=== PATIENT | male | born 1955 | race African-American/Black ===

== ENCOUNTER → 2018-06-12 | Outpatient (CLI) | payer OTHER ==
[~2018-06-12] MED LIST: BUME2TAB3 PO; CYCL5TAB PO; ENAL-3 PO; FLUMAZENIL 0.1 MG/ML INJ 10ML MDV IV ONE; GELATIN 1 SPONGE SIZE 100 TOP ONE; LIDOCAINE 2% (LOCAL ANESTH.) PF 5ml SDV ONE; MIDAZOLAM HCL 1MG/1ML-2 ML VIAL ONE; NALOXONE HCL 1MG/ML 2ML SYRINGE ONE; fentaNYL CITRATE 100 MCG/2 ML VL ONE
[2018-06-12 10:06] LABS: Basophils # (auto) 0.1 uL; Basophils % (auto) 1.5 % (0.0-2.0); Eosinophils # (auto) 0.4 uL; Hematocrit 33.2 % (41.0-53.0); Hemoglobin 11.1 g/dL (13.5-17.5); Lymphocytes # (auto) 1.5 uL; Lymphocytes % (auto) 15.4 % (10.0-50.0); Mean Corpuscular Hemoglobin 29.1 pg (28.0-32.0); Mean Corpuscular Hgb Conc. 33.3 g/dL (32.0-36.0); Mean Corpuscular Volume 87.2 fL (80.0-100.0); Monocytes # (auto) 0.8 uL; Monocytes % (auto) 8.3 % (0.0-12.0); Neutrophils # (auto) 6.7 uL; Neutrophils % (auto) 70.8 % (37.0-80.0); Platelet Count (auto) 435 10^3/uL (140-450); Red Blood Cells 3.81 10^6/uL (4.5-5.90); Red Cell Distribution Width 17.6 % (11.8-14.3); White Blood Cell 9.5 10^3/uL (4.4-10.8)
[2018-06-12 10:16] LABS: INR 0.93 (0.9-1.15); Partial Thromboplastin Time 29.3 sec (23.78-33.04)
== END | disposition home or self-care (01) ==
LOC: LAB 08:00 → CT 09:36
DX: N19 Unspecified kidney failure (principal); I50.9 Heart failure, unspecified; J18.9 Pneumonia, unspecified organism; F17.210 Nicotine dependence, cigarettes, uncomplicated; N04.9 Nephrotic syndrome with unspecified morphologic changes; Z82.49 Family history of ischemic heart disease and other diseases of the circulatory system; Z79.899 Other long term (current) drug therapy
CPT/HCPCS: 10022; 36415; 71045; 74150; 77012; 85025; 85610; 85730; J2001; J2250

== ENCOUNTER 2018-06-14 11:25 | Inpatient (IN) | payer OTHER ==
[~2018-06-14] VITALS: Ht 175.3 cm; Wt 112.6 kg
[2018-06-14] MEDS ORDERED: FUROSEMIDE 40 MG/4 ML VIAL IV ONE (12:00)
[2018-06-14 12:30] LABS: Basophils # (auto) 0.1 uL; Basophils % (auto) 0.8 % (0.0-2.0); Eosinophils # (auto) 0.5 uL; Hematocrit 30.7 % (41.0-53.0); Hemoglobin 10.1 g/dL (13.5-17.5); Lymphocytes # (auto) 1.5 uL; Mean Corpuscular Hemoglobin 28.9 pg (28.0-32.0); Mean Corpuscular Hgb Conc. 33.1 g/dL (32.0-36.0); Mean Corpuscular Volume 87.5 fL (80.0-100.0); Monocytes # (auto) 0.7 uL; Monocytes % (auto) 8.8 % (0.0-12.0); Neutrophils # (auto) 5.3 uL; Neutrophils % (auto) 65.4 % (37.0-80.0); Platelet Count (auto) 408 10^3/uL (140-450); Red Blood Cells 3.51 10^6/uL (4.5-5.90); Red Cell Distribution Width 17.7 % (11.8-14.3)
[2018-06-14 12:48] LABS: INR 0.95 (0.9-1.15); Partial Thromboplastin Time 29.2 sec (23.78-33.04); Prothrombin Time 10.2 sec (9.27-12.13)
[2018-06-14 12:53] LABS: BUN/Creatinine Ratio 7.7; Calcium 6.9 mg/dL (8.5-10.1); Potassium 3.2 mmol/L (3.5-5.1)
[2018-06-14 12:58] LABS: Bilirubin, Total 0.1 mg/dL (0.2-1.0); Total Protein 4.2 g/dL (6.4-8.2)
[2018-06-14 13:07] LABS: Albumin 0.8 g/dL (3.4-5.0)
[2018-06-14] MEDS ORDERED: POTASSIUM EFFERVESENT TAB 25 MEQ PO ONE (13:15)
[2018-06-14] MEDS ORDERED: ALBUTEROL SULF 2.5 MG/0.5ML(0.5%) NEB SOLN NEB PRN (13:30)
[2018-06-14] MEDS ORDERED: MORPHINE SULFATE 4 MG/ML SYR/VIAL IV PRN ×2 (13:30)
[2018-06-14] MEDS ORDERED: ACETAMINOPHEN 500 MG TAB PO PRN (13:30)
[2018-06-14] MEDS ORDERED: LACTULOSE 20Gm/30ML SOLN PO PRN (13:30)
[2018-06-14] MEDS ORDERED: NITROGLYCERIN 0.4 MG SL TAB SL PRN (13:30)
[2018-06-14] MEDS ORDERED: ONDANSETRON HCL 4 MG/2 ML VIAL IV PRN (13:30)
[2018-06-14] MEDS ORDERED: LORazepam 0.5 MG TAB PO PRN (13:30)
[2018-06-14] MEDS: PANTOPRAZOLE 40 MG TAB PO SCH (13:51)
[2018-06-14] MEDS: SODIUM CHLOR 0.9% PF (SALINE LOCK) 10ML VIAL/SYR IV SCH ×2 (13:51→21:48)
[2018-06-14] MEDS: LEVOFLOXACIN 500MG 100 ML IV SCH (13:54)
[2018-06-14 13:58] LABS: Urine Bacteria FEW /hpf (None Seen); Urine Blood 2+ /uL (Negative); Urine Specific Gravity 1.012 (1.001-1.035); Urine WBC 6 /hpf (0 - 3)
[2018-06-14] MEDS ORDERED: CARVEDILOL 3.125 MG TAB PO ONE (15:45)
[2018-06-14 17:32] VITALS: BP 148/108
[2018-06-14] MEDS: LABETALOL HCL 5 MG/ML ML 20ML VIAL IV PRN (17:43)
[2018-06-14] MEDS: ALBUTEROL SULF 2.5 MG/0.5ML(0.5%) NEB SOLN NEB SCH ×2 (18:22→23:41)
[2018-06-14 19:14] LABS: Hematocrit 31.5 % (41.0-53.0); Hemoglobin 10.6 g/dL (13.5-17.5)
[2018-06-14 20:20] VITALS: BP 136/101
[2018-06-14 20:54] VITALS: BP 136/101
[2018-06-14] MEDS: ATORVASTATIN 20 MG TAB PO SCH (21:48)
[2018-06-14] MEDS: CARVEDILOL 3.125 MG TAB PO SCH (21:49)
[2018-06-14 22:38] LABS: Amphetamine Screen, Urine NEGATIVE (NEGATIVE); Barbiturate Scree,Urine NEGATIVE (NEGATIVE); Benzodiazephine Screen, Urine NEGATIVE (NEGATIVE); Cannabinoid Screen, Urine NEGATIVE (NEGATIVE); Cocaine Screen, Urine NEGATIVE (NEGATIVE); Opiate Scree,Urine NEGATIVE (NEGATIVE); Phencyclidine Screen, Urine NEGATIVE (NEGATIVE)
[2018-06-14 22:46] LABS: Alcohol, Urine < 3.0 mg/dL (0-5)
[2018-06-15 00:59] LABS: Hematocrit 29.6 % (41.0-53.0); Hemoglobin 9.9 g/dL (13.5-17.5)
[2018-06-15] MEDS ORDERED: ENAL-3 PO (02:49)
[2018-06-15] MEDS ORDERED: BUME2TAB3 PO (02:50)
[2018-06-15] MEDS ORDERED: CYCL5TAB PO (02:50)
[2018-06-15 05:06] VITALS: BP 138/85
[2018-06-15] MEDS: ALBUTEROL SULF 2.5 MG/0.5ML(0.5%) NEB SOLN NEB SCH ×3 (05:46→19:03)
[2018-06-15] MEDS: HYDROcodone-ACET 5/325MG TAB PO PRN ×2 (05:50→17:48)
[2018-06-15] MEDS ORDERED: INFLUENZA QUAD 2018-2019 0.5 ML SYRG IM ONE (06:00)
[2018-06-15] MEDS ORDERED: PNEUMOCOCCAL VACC POLYS 25 MCG/0.5 ML VIAL IM ONE (06:00)
[2018-06-15 06:08] LABS: Basophils # (auto) 0.1 uL; Basophils % (auto) 1.1 % (0.0-2.0); Eosinophils # (auto) 0.5 uL; Eosinophils % (auto) 5.5 % (0.0-7.0); Hematocrit 29.5 % (41.0-53.0); Lymphocytes # (auto) 1.3 uL; Lymphocytes % (auto) 13.6 % (10.0-50.0); Mean Corpuscular Hemoglobin 29.7 pg (28.0-32.0); Mean Corpuscular Volume 87.1 fL (80.0-100.0); Monocytes # (auto) 0.9 uL; Monocytes % (auto) 9.6 % (0.0-12.0); Neutrophils # (auto) 6.6 uL; Neutrophils % (auto) 70.2 % (37.0-80.0); Nucleated Red Blood Cells % 0.1 %; Platelet Count (auto) 380 10^3/uL (140-450); Red Blood Cells 3.38 10^6/uL (4.5-5.90); Red Cell Distribution Width 17.4 % (11.8-14.3); White Blood Cell 9.4 10^3/uL (4.4-10.8)
[2018-06-15] MEDS: SODIUM CHLOR 0.9% PF (SALINE LOCK) 10ML VIAL/SYR IV SCH ×3 (06:22→21:26)
[2018-06-15 06:32] LABS: Potassium 3.1 mmol/L (3.5-5.1)
[2018-06-15 06:47] LABS: BUN/Creatinine Ratio 9.7; Calcium 7.3 mg/dL (8.5-10.1)
[2018-06-15 07:00] LABS: Bilirubin, Total 0.1 mg/dL (0.2-1.0); Total Protein 4.1 g/dL (6.4-8.2)
[2018-06-15 07:01] LABS: Albumin 0.7 g/dL (3.4-5.0)
[2018-06-15 09:00] VITALS: BP 155/94
[2018-06-15] MEDS ORDERED: FUROSEMIDE 40 MG/4 ML VIAL IV SCH (10:00)
[2018-06-15] MEDS: POTASSIUM CHL 20 Meq TABLET PO SCH (10:17)
[2018-06-15] MEDS: ENALAPRIL MALEATE 2.5 MG TAB PO SCH (10:17)
[2018-06-15] MEDS: PANTOPRAZOLE 40 MG TAB PO SCH (10:17)
[2018-06-15] MEDS: CARVEDILOL 3.125 MG TAB PO SCH ×2 (10:17→21:27)
[2018-06-15] MEDS: NITROGLYCERIN 0.2MG/HR TOPICAL PATCH TD SCH (10:18)
[2018-06-15] MEDS: LEVOFLOXACIN 500MG 100 ML IV SCH (10:18)
[2018-06-15] MEDS ORDERED: POTASSIUM CHL 20MEQ/100ML 100 ML IV ONE (11:15)
[2018-06-15] MEDS ORDERED: POTASSIUM CHL 20 Meq TABLET PO ONE (12:00)
[2018-06-15 13:00] VITALS: BP 138/88
[2018-06-15 15:01] LABS: Protein, Urine 331.4 mg/dL (0.0-11.9)
[2018-06-15 17:14] VITALS: BP 145/99
[2018-06-15] MEDS: Pro-Stat SF 30ml Vanilla PO SCH ×2 (18:00→19:01)
[2018-06-15] MEDS: ATORVASTATIN 20 MG TAB PO SCH (21:26)
[2018-06-15] MEDS: FUROSEMIDE 40 MG/4 ML VIAL IV SCH (21:26)
[2018-06-15 22:00] VITALS: BP 145/89
[2018-06-16] MEDS: ALBUTEROL SULF 2.5 MG/0.5ML(0.5%) NEB SOLN NEB SCH ×4 (00:31→19:06)
[2018-06-16] MEDS: HYDROcodone-ACET 5/325MG TAB PO PRN (04:55)
[2018-06-16 05:00] VITALS: BP 121/84
[2018-06-16] MEDS: SODIUM CHLOR 0.9% PF (SALINE LOCK) 10ML VIAL/SYR IV SCH ×3 (05:53→22:16)
[2018-06-16 08:06] LABS: Immunoglobulin G, Serum 281 mg/dL (700-1600)
[2018-06-16 09:00] VITALS: BP 151/100
[2018-06-16] MEDS: FUROSEMIDE 40 MG/4 ML VIAL IV SCH ×2 (10:23→22:16)
[2018-06-16] MEDS: LEVOFLOXACIN 500MG 100 ML IV SCH (10:23)
[2018-06-16] MEDS: POTASSIUM CHL 20 Meq TABLET PO SCH (10:24)
[2018-06-16] MEDS: PANTOPRAZOLE 40 MG TAB PO SCH (10:24)
[2018-06-16] MEDS: ENALAPRIL MALEATE 2.5 MG TAB PO SCH (10:24)
[2018-06-16] MEDS: CARVEDILOL 3.125 MG TAB PO SCH ×2 (10:25→22:17)
[2018-06-16] MEDS: NITROGLYCERIN 0.2MG/HR TOPICAL PATCH TD SCH (10:25)
[2018-06-16 13:00] VITALS: BP 157/101
[2018-06-16 14:10] LABS: BUN/Creatinine Ratio 11.4; Potassium 3.4 mmol/L (3.5-5.1)
[2018-06-16 17:00] VITALS: BP 143/93
[2018-06-16] MEDS ORDERED: SOD CHL 0.45% WITH 20MEQ KCL 1,000 ML IV SCH (17:30)
[2018-06-16] MEDS ORDERED: SOD CHL 0.45% WITH 20MEQ KCL 1,000 ML IV ONE (17:30)
[2018-06-16] MEDS ORDERED: POTASSIUM CHL 20MEQ/100ML 100 ML IV ONE (17:45)
[2018-06-16] MEDS: Pro-Stat SF 30ml Vanilla PO SCH (18:33)
[2018-06-16 22:00] VITALS: BP 151/92
[2018-06-16] MEDS: ATORVASTATIN 20 MG TAB PO SCH (22:17)
[2018-06-16] MEDS: TEMAZEPAM 15 MG CAP PO PRN (22:26)
[2018-06-17] MEDS: ALBUTEROL SULF 2.5 MG/0.5ML(0.5%) NEB SOLN NEB SCH ×4 (00:29→20:17)
[2018-06-17 05:00] VITALS: BP 133/98
[2018-06-17 05:30] LABS: Basophils # (auto) 0 uL; Basophils % (auto) 0.5 % (0.0-2.0); Eosinophils # (auto) 0.6 uL; Eosinophils % (auto) 7.4 % (0.0-7.0); Hematocrit 26.7 % (41.0-53.0); Lymphocytes % (auto) 12.5 % (10.0-50.0); Mean Corpuscular Hemoglobin 29.7 pg (28.0-32.0); Mean Corpuscular Hgb Conc. 33.7 g/dL (32.0-36.0); Monocytes # (auto) 0.8 uL; Neutrophils # (auto) 5.8 uL; Neutrophils % (auto) 69.6 % (37.0-80.0); Platelet Count (auto) 353 10^3/uL (140-450); Red Blood Cells 3.03 10^6/uL (4.5-5.90); Red Cell Distribution Width 17.2 % (11.8-14.3); White Blood Cell 8.4 10^3/uL (4.4-10.8)
[2018-06-17 05:45] LABS: BUN/Creatinine Ratio 12.1; Potassium 3.2 mmol/L (3.5-5.1)
[2018-06-17 05:51] LABS: Bilirubin, Total 0.2 mg/dL (0.2-1.0); Total Protein 3.9 g/dL (6.4-8.2)
[2018-06-17 05:53] LABS: Albumin 0.7 g/dL (3.4-5.0)
[2018-06-17] MEDS ORDERED: SODIUM CHLORIDE 0.9 % NEB SOLN 3ML NEB ONE (05:56)
[2018-06-17] MEDS: SODIUM CHLOR 0.9% PF (SALINE LOCK) 10ML VIAL/SYR IV SCH ×3 (06:00→22:00)
[2018-06-17] MEDS: Pro-Stat SF 30ml Vanilla PO SCH ×2 (08:00→18:00)
[2018-06-17] MEDS ORDERED: ALBUMIN 25% 100 ML IV ONE (08:30)
[2018-06-17 09:00] VITALS: BP 158/109
[2018-06-17] MEDS: POTASSIUM CHL 20 Meq TABLET PO SCH (09:09)
[2018-06-17] MEDS: PANTOPRAZOLE 40 MG TAB PO SCH (09:14)
[2018-06-17] MEDS: FUROSEMIDE 40 MG/4 ML VIAL IV SCH ×2 (09:14→17:31)
[2018-06-17] MEDS: CARVEDILOL 3.125 MG TAB PO SCH ×2 (09:15→21:52)
[2018-06-17] MEDS: ENALAPRIL MALEATE 2.5 MG TAB PO SCH (09:16)
[2018-06-17] MEDS: LEVOFLOXACIN 500MG 100 ML IV SCH (09:17)
[2018-06-17] MEDS: NITROGLYCERIN 0.2MG/HR TOPICAL PATCH TD SCH (09:17)
[2018-06-17 13:00] VITALS: BP 137/92
[2018-06-17] MEDS: POTASSIUM CHL 20MEQ/100ML 100 ML IV SCH ×2 (13:45→17:30)
[2018-06-17 17:00] VITALS: BP 137/87
[2018-06-17] MEDS: ATORVASTATIN 20 MG TAB PO SCH (21:52)
[2018-06-17] MEDS: TEMAZEPAM 15 MG CAP PO PRN (21:53)
[2018-06-17 22:00] VITALS: BP 153/99
[2018-06-18] VITALS (8 sets, daily range): BP systolic 128–154; BP diastolic 79–104
[2018-06-18] MEDS: ALBUTEROL SULF 2.5 MG/0.5ML(0.5%) NEB SOLN NEB SCH ×4 (00:30→19:32)
[2018-06-18] MEDS: SODIUM CHLOR 0.9% PF (SALINE LOCK) 10ML VIAL/SYR IV SCH ×3 (06:00→21:46)
[2018-06-18 06:31] LABS: Basophils # (auto) 0.1 uL; Basophils % (auto) 1.2 % (0.0-2.0); Eosinophils # (auto) 0.7 uL; Eosinophils % (auto) 7.8 % (0.0-7.0); Hematocrit 27.5 % (41.0-53.0); Hemoglobin 9.3 g/dL (13.5-17.5); Lymphocytes # (auto) 1.1 uL; Lymphocytes % (auto) 12.2 % (10.0-50.0); Mean Corpuscular Hemoglobin 29.9 pg (28.0-32.0); Monocytes # (auto) 0.9 uL; Monocytes % (auto) 10.1 % (0.0-12.0); Neutrophils # (auto) 6.4 uL; Neutrophils % (auto) 68.7 % (37.0-80.0); Platelet Count (auto) 370 10^3/uL (140-450); Red Blood Cells 3.12 10^6/uL (4.5-5.90); Red Cell Distribution Width 17.1 % (11.8-14.3); White Blood Cell 9.3 10^3/uL (4.4-10.8)
[2018-06-18 06:40] LABS: INR 0.94 (0.9-1.15); Prothrombin Time 10.1 sec (9.27-12.13)
[2018-06-18 06:48] LABS: BUN/Creatinine Ratio 12.8; Calcium 7.2 mg/dL (8.5-10.1); Potassium 3.5 mmol/L (3.5-5.1)
[2018-06-18] MEDS: FUROSEMIDE 40 MG/4 ML VIAL IV SCH ×2 (06:48→18:29)
[2018-06-18 07:10] LABS: Bilirubin, Total 0.1 mg/dL (0.2-1.0); Total Protein 4.3 g/dL (6.4-8.2)
[2018-06-18 07:22] LABS: Albumin 0.9 g/dL (3.4-5.0)
[2018-06-18] MEDS: Pro-Stat SF 30ml Vanilla PO SCH (08:00)
[2018-06-18] MEDS ORDERED: ALBUMIN 25% 100 ML IV ONE (08:00)
[2018-06-18] MEDS: LABETALOL HCL 5 MG/ML ML 20ML VIAL IV PRN ×2 (08:53→14:25)
[2018-06-18] MEDS: ENALAPRIL MALEATE 2.5 MG TAB PO SCH (09:49)
[2018-06-18] MEDS: POTASSIUM CHL 20 Meq TABLET PO SCH (09:49)
[2018-06-18] MEDS: PANTOPRAZOLE 40 MG TAB PO SCH (09:50)
[2018-06-18] MEDS: CARVEDILOL 3.125 MG TAB PO SCH ×2 (09:50→21:46)
[2018-06-18] MEDS: NITROGLYCERIN 0.2MG/HR TOPICAL PATCH TD SCH (10:03)
[2018-06-18] MEDS ORDERED: IOHEXOL 350 MG/ML 100ML IJ ONE (12:42)
[2018-06-18] MEDS ORDERED: LIDOCAINE 2% (LOCAL ANESTH.) PF 5ml SDV ONE (12:42)
[2018-06-18] MEDS ORDERED: ANGIOMAX 250 MG VIAL IV ONE (12:57)
[2018-06-18] MEDS ORDERED: fentaNYL CITRATE 100 MCG/2 ML VL ONE (12:57)
[2018-06-18] MEDS ORDERED: MIDAZOLAM HCL 1MG/1ML-2 ML VIAL ONE (12:57)
[2018-06-18] MEDS ORDERED: SODIUM CHL 0.9% 0 ML ONE (12:58)
[2018-06-18] MEDS ORDERED: IODIXANOL 320MG/ML 100ML BTL IV ONE (13:03)
[2018-06-18 13:08] LABS: Hepatitis B Surface Antigen Negative (Negative); Hepatitis C Antibody Negative (Negative)
[2018-06-18] MEDS ORDERED: LABETALOL HCL 5 MG/ML ML 20ML VIAL IV ONE (14:26)
[2018-06-18] MEDS: ATORVASTATIN 20 MG TAB PO SCH (21:47)
[2018-06-19] MEDS: ALBUTEROL SULF 2.5 MG/0.5ML(0.5%) NEB SOLN NEB SCH ×3 (01:02→12:04)
[2018-06-19 05:00] VITALS: BP 137/87
[2018-06-19] MEDS: SODIUM CHLOR 0.9% PF (SALINE LOCK) 10ML VIAL/SYR IV SCH (06:02)
[2018-06-19] MEDS: FUROSEMIDE 40 MG/4 ML VIAL IV SCH (06:03)
[2018-06-19 06:48] LABS: INR 0.95 (0.9-1.15); Partial Thromboplastin Time 31.3 sec (23.78-33.04); Prothrombin Time 10.2 sec (9.27-12.13)
[2018-06-19 07:02] LABS: Potassium 3.3 mmol/L (3.5-5.1)
[2018-06-19 07:15] LABS: BUN/Creatinine Ratio 13.4; Calcium 7.2 mg/dL (8.5-10.1)
[2018-06-19 07:33] VITALS: BP 145/107
[2018-06-19] MEDS: Pro-Stat SF 30ml Vanilla PO SCH (08:00)
[2018-06-19 09:00] VITALS: BP 145/107
[2018-06-19] MEDS ORDERED: POTASSIUM CHL 20 Meq TABLET PO ONE (10:00)
[2018-06-19] MEDS ORDERED: ALBUMIN 25% 100 ML IV ONE (10:45)
[2018-06-19] MEDS: ENALAPRIL MALEATE 2.5 MG TAB PO SCH (10:50)
[2018-06-19] MEDS: NITROGLYCERIN 0.2MG/HR TOPICAL PATCH TD SCH (10:50)
[2018-06-19] MEDS: POTASSIUM CHL 20 Meq TABLET PO SCH (10:50)
[2018-06-19] MEDS: CARVEDILOL 3.125 MG TAB PO SCH (10:51)
[2018-06-19] MEDS: PANTOPRAZOLE 40 MG TAB PO SCH (10:51)
[2018-06-19 11:13] VITALS: BP 143/99
[2018-06-19 12:32] VITALS: BP 145/107
== END 2018-06-19 12:58 | disposition home or self-care (01) | DRG 192 ==
LOC: ER 11:27 → TELE 11:28 → TELE-WESTW 20:00
PROVIDERS: ADMIT Internal Medicine; ATTEND Internal Medicine
PROC: 4A023N7 Measurement of Cardiac Sampling and Pressure, Left Heart, Percutaneous Approach (ICD-10-PCS; principal; 2018-06-18)
PROC: B2151ZZ Fluoroscopy of Left Heart using Low Osmolar Contrast (ICD-10-PCS; 2018-06-18)
PROC: B2111ZZ Fluoroscopy of Multiple Coronary Arteries using Low Osmolar Contrast (ICD-10-PCS; 2018-06-18)
DX: I13.0 Hypertensive heart and chronic kidney disease with heart failure and stage 1 through stage 4 chronic kidney disease, or unspecified chronic kidney disease (principal); E43 Unspecified severe protein-calorie malnutrition; I42.0 Dilated cardiomyopathy; N17.9 Acute kidney failure, unspecified; N18.3 Chronic kidney disease, stage 3 (moderate); E87.6 Hypokalemia; J98.11 Atelectasis; N04.9 Nephrotic syndrome with unspecified morphologic changes; G62.9 Polyneuropathy, unspecified; D63.1 Anemia in chronic kidney disease; E66.9 Obesity, unspecified; E78.5 Hyperlipidemia, unspecified; G89.29 Other chronic pain; M54.9 Dorsalgia, unspecified; M19.90 Unspecified osteoarthritis, unspecified site; Z68.36 Body mass index [BMI] 36.0-36.9, adult; Z23 Encounter for immunization; I50.43 Acute on chronic combined systolic (congestive) and diastolic (congestive) heart failure
CPT/HCPCS: 10022; 36415; 51702; 71045; 74150; 77012; 80048; 80053; 80061; 80307; 81001; 82306; 82550; 82570; 82784; 83520; 83880; 83970; 84100; 84156; 84300; 84443; 84484; 85014; 85018; 85025; 85045; 85610; 85652; 85730; 86038; 86141; 86256; 86334; 86335; 86592; 86803; 86850; 86900; 86901; 87340; 90674; 93005; 93306; 94640; 96365; 96375; 99152; A6257; J1956; J2001; J2250; J2405; J3480; P9047; Q9967

== ENCOUNTER 2018-07-14 00:54 | Emergency (ER) | payer OTHER ==
[~2018-07-14] VITALS: Ht 175.3 cm; Wt 137.0 kg
[~2018-07-14 00:54] MED LIST changes: -FLUMAZENIL 0.1 MG/ML INJ 10ML MDV IV ONE; -GELATIN 1 SPONGE SIZE 100 TOP ONE; -LIDOCAINE 2% (LOCAL ANESTH.) PF 5ml SDV ONE; -MIDAZOLAM HCL 1MG/1ML-2 ML VIAL ONE; -NALOXONE HCL 1MG/ML 2ML SYRINGE ONE; -fentaNYL CITRATE 100 MCG/2 ML VL ONE
[2018-07-14] MEDS ORDERED: FUROSEMIDE 20 MG/2 ML VIAL IV ONE (01:15)
[2018-07-14 01:29] LABS: Basophils # (auto) 0 uL; Basophils % (auto) 0.1 % (0.0-2.0); Eosinophils # (auto) 0 uL; Hematocrit 33.2 % (41.0-53.0); Hemoglobin 10.7 g/dL (13.5-17.5); Lymphocytes # (auto) 0.3 uL; Lymphocytes % (auto) 1.8 % (10.0-50.0); Mean Corpuscular Hemoglobin 29.5 pg (28.0-32.0); Mean Corpuscular Hgb Conc. 32.2 g/dL (32.0-36.0); Mean Corpuscular Volume 91.8 fL (80.0-100.0); Monocytes # (auto) 0.4 uL; Monocytes % (auto) 2.1 % (0.0-12.0); Neutrophils # (auto) 17.1 uL; Platelet Count (auto) 368 10^3/uL (140-450); Red Blood Cells 3.62 10^6/uL (4.5-5.90); Red Cell Distribution Width 18.9 % (11.8-14.3); White Blood Cell 17.8 10^3/uL (4.4-10.8)
[2018-07-14 01:43] LABS: Albumin 1.1 g/dL (3.4-5.0); BUN/Creatinine Ratio 18.8; Calcium 7.1 mg/dL (8.5-10.1); Magnesium 2.6 mg/dL (1.6-2.6); Potassium 3.3 mmol/L (3.5-5.1)
[2018-07-14 01:48] LABS: Bilirubin, Total 0.1 mg/dL (0.2-1.0); Total Protein 4.2 g/dL (6.4-8.2)
[2018-07-14 02:23] LABS: Urine Bacteria FEW /hpf (None Seen); Urine Blood 2+ /uL (Negative); Urine Hyaline Cast MANY /lpf (0 - 2); Urine Mucus FEW (None Seen); Urine Specific Gravity 1.013 (1.001-1.035); Urine Sperm PRESENT /hpf (None Seen); Urine WBC 4 /hpf (0 - 3)
[2018-07-14 07:13] VITALS: BP 167/114
[2018-07-14] MEDS ORDERED: SODIUM CHLORIDE 0.9% 1,000 ML IV ONE (08:02)
[2018-07-14] MEDS ORDERED: POTASSIUM EFFERVESENT TAB 25 MEQ PO ONE (08:15)
[2018-07-14] MEDS ORDERED: ALBUMIN 25% 100 ML IV ONE (08:15)
[2018-07-14] MEDS ORDERED: SPIRONOLACTONE 25 MG TAB PO ONE (08:15)
== END 2018-07-14 08:56 | disposition left against medical advice (07) ==
LOC: ER 00:59
DX: I13.0 Hypertensive heart and chronic kidney disease with heart failure and stage 1 through stage 4 chronic kidney disease, or unspecified chronic kidney disease (principal); N18.3 Chronic kidney disease, stage 3 (moderate); I50.9 Heart failure, unspecified; D63.8 Anemia in other chronic diseases classified elsewhere; E46 Unspecified protein-calorie malnutrition; R60.1 Generalized edema; E66.01 Morbid (severe) obesity due to excess calories; M19.90 Unspecified osteoarthritis, unspecified site; Z68.41 Body mass index [BMI] 40.0-44.9, adult; Z53.29 Procedure and treatment not carried out because of patient's decision for other reasons
CPT/HCPCS: 36415; 71045; 80053; 81001; 83735; 83880; 84443; 84484; 85025; 93005; 94761; 96374; 99285; J1940